=== PATIENT | female | born 1990 | race American Indian/Alaskan Native ===

== ENCOUNTER 2021-04-25 09:31 | Emergency (ER) | payer MEDICAID ==
[2021-04-25 09:59] VITALS: BP 110/82
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
== END 2021-04-25 14:04 | disposition home or self-care (01) ==
LOC: ED 09:31
DX: S80.02XA Contusion of left knee, initial encounter (principal); D16.9 Benign neoplasm of bone and articular cartilage, unspecified; J45.909 Unspecified asthma, uncomplicated; V49.9XXA Car occupant (driver) (passenger) injured in unspecified traffic accident, initial encounter; Y93.89 Activity, other specified; Y92.89 Other specified places as the place of occurrence of the external cause; Y99.8 Other external cause status
CPT/HCPCS: 99283